=== PATIENT | female | born 1955 | race Caucasian/White ===

== ENCOUNTER 2019-03-07 15:02 | Day surgery (SDC) | payer BC ==
[2019-03-07] VITALS (8 sets, daily range): BP systolic 116–148; BP diastolic 46–85; PULSE 76–96; TEMP 97.2–98
[~2019-03-07] VITALS: Ht 154.9 cm; Wt 86.8 kg
[2019-03-07] MEDS ORDERED: CELEXA 20MG20 MG/TAB PO (15:26)
[2019-03-07] MEDS ORDERED: CELEBREX 1100 MG/CAP PO (15:27)
[2019-03-07] MEDS ORDERED: AMOXICILLIN 50500 MG PO (15:27)
[2019-03-07] MEDS ORDERED: ESTRACE 1MG1 MG/TAB PO (15:27)
[2019-03-07] MEDS ORDERED: NORCO 325 MG-51 TAB PO (15:28)
[2019-03-07] MEDS ORDERED: FLOMAX 0.40.4 MG/CAP PO (15:28)
--- NOTE | 2019-03-07 23:11 | NUR ---
Patient up to floor at 2019. alert and oriented. ambulated to bathroom and voided pink clear urine. VSS. O2 sitting at 89 while eating and put on 2 L O2. patient eating and drinking without issue. ambulated to the bathroom several times. prn norco given for mild pain. IV to L wrist discontinued, bandaid applied. discharge teaching done. patient dressed independently. discharged at 2221 via wheelchair with spouse to home. walked out by this nurse.
== END 2019-03-07 22:22 | disposition home or self-care (01) ==
LOC: SDCO 15:02 → SURG 20:20 → SDCO 20:20 → SURG 22:22
DX: N20.1 Calculus of ureter (principal); Z90.710 Acquired absence of both cervix and uterus; Z79.52 Long term (current) use of systemic steroids; Z85.42 Personal history of malignant neoplasm of other parts of uterus
CPT/HCPCS: OP; C1769; C2617; J1100; J1885; J2405; J2704; J3010; J7120; Q9967

== ENCOUNTER 2020-05-12 14:15 | Outpatient (RCR) | payer BC ==
[~2020-05-12 14:15] MED LIST: AMOXICILLIN 50500 MG PO; CELEBREX 1100 MG/CAP PO; CELEXA 20MG20 MG/TAB PO; ESTRACE 1MG1 MG/TAB PO; FLOMAX 0.40.4 MG/CAP PO; NORCO 325 MG-51 TAB PO
== END 2020-06-22 10:54 ==
LOC: WSC 14:15
DX: Z98.1 Arthrodesis status (principal)